=== PATIENT | male | born 1945 | race Caucasian/White ===

== ENCOUNTER 2017-03-05 09:29 | Emergency (ER) | payer MEDICARE, OTHER ==
[~2017-03-05] VITALS: Ht 180.3 cm; Wt 80.3 kg
[2017-03-05 09:32] VITALS: BP 122/83
[2017-03-05] MEDS ORDERED: ACETAMINOPHEN ES 500 MG TABLET ONE (10:32)
[2017-03-05] MEDS ORDERED: ACETAMINOPHEN ES 500 MG TABLET PO ONE (11:00)
[2017-03-05] MEDS ORDERED: SILD50TA PO (17:28)
[2017-03-05] MEDS ORDERED: RANI150T12 PO (17:28)
== END 2017-03-05 10:37 | disposition home or self-care (01) ==
LOC: ER 09:31
DX: S20.222A Contusion of left back wall of thorax, initial encounter (principal); Z88.8 Allergy status to other drugs, medicaments and biological substances; W18.39XA Other fall on same level, initial encounter; Y93.89 Activity, other specified; Y92.89 Other specified places as the place of occurrence of the external cause; Y99.8 Other external cause status
CPT/HCPCS: 71100; 72070; 99284; A4606; Z7610

== ENCOUNTER 2017-03-05 13:51 | Emergency (ER) | payer MEDICARE, OTHER ==
[~2017-03-05] VITALS: Ht 180.3 cm; Wt 80.3 kg
--- NOTE | 2017-03-05 13:55 | NUR ---
AAOX3, CAME TO THE ER C/O WORSENING CHEST PAIN SINCE HE GOT HOME AFTER HE WAS DISCHARGED HOME D/T SLIPPED AND FELL THIS MORNING. SKIN IS WARM AND DRY. PAIN BELOW THE LEFT CHEST DURING INHALATION. PLACED ON MONITOR. EKG AT BS. DR FOLEY AT BS FOR EVAL.
[2017-03-05] MEDS ORDERED: ACETAMINOPHEN ES 500 MG TABLET PO ONE (14:30)
[2017-03-05] MEDS ORDERED: ACETAMINOPHEN ES 500 MG TABLET ONE (14:40)
--- NOTE | 2017-03-05 15:07 | NUR ---
TRIED TO DO CT CHEST SCAN, BUT PT IN TOO MUCH, CAN NOT LIE FLAT. CRISTOBAL PARR IS AWARE.
[2017-03-05] MEDS ORDERED: ONDANSETRON HCL/PF 4 MG/2 ML VIAL ONE (15:21)
[2017-03-05] MEDS ORDERED: MORPHINE SULFATE INJ 2 MG/ML DISP.SYRIN ONE ×2 (15:21→18:10)
[2017-03-05] MEDS ORDERED: ONDANSETRON HCL/PF - ER 4 MG/2 ML VIAL IV ONE (15:30)
[2017-03-05] MEDS ORDERED: MORPHINE SULFATE INJ 2 MG/ML DISP.SYRIN IV ONE ×2 (15:30→18:00)
[2017-03-05 15:34] LABS: BASOPHILS # (AUTO) 0.1 /CMM (0.0-0.2); BASOPHILS % (AUTO) 0.4 % (0.0-2.0); HEMATOCRIT 46 % (39-51); HEMOGLOBIN 15.4 g/dL (13.5-17.5); LYMPHOCYTES # (AUTO) 0.9 /CMM (0.8-4.8); LYMPHOCYTES % (AUTO) 5.9 % (20.0-44.0); MEAN CORPUSCULAR HEMOGLOBIN 33 PG (26.0-33.0); MEAN CORPUSCULAR HGB CONC 33 g/dl (31.0-36.0); MEAN CORPUSCULAR VOLUME 99 fL (80-96); MONOCYTES # (AUTO) 0.9 /CMM (0.1-1.30); MONOCYTES % (AUTO) 5.9 % (2.0-12.0); NEUTROPHILS # (AUTO) 13.8 /CMM (1.8-8.9); NEUTROPHILS % (AUTO) 87.8 % (43.0-81.0); PLATELET COUNT (AUTO) 216 /CMM (150-450); RDW COEFFICIENT OF VARIATION 13.9 (11.5-15.0); RED BLOOD CELL COUNT(AUTO) 4.69 MIL/uL (4.5-6.0); WHITE BLOOD COUNT (AUTO) 15.7 K/uL (4.3-11.0)
[2017-03-05 15:50] LABS: CALCIUM, SERUM 9.7 mg/dL (8.5-10.1); CREATININE 1.1 mg/dL (0.6-1.3); POTASSIUM 3.7 mmol/L (3.5-5.1)
[2017-03-05 15:58] LABS: INR 1.01 (0.87-1.13); PROTHROMBIN TIME 10.8 SECS (9.5-12.7)
[2017-03-05 15:59] LABS: ALBUMIN 4.7 g/dL (3.4-5.0); BILIRUBIN,DIRECT 0.2 mg/dL (0.0-0.2); BILIRUBIN,TOTAL 1.4 mg/dL (0.2-1.0); TOTAL PROTEIN, SERUM 7.9 g/dL (6.4-8.2)
[2017-03-05] MEDS ORDERED: SILD50TA PO (17:28)
[2017-03-05] MEDS ORDERED: RANI150T12 PO (17:28)
--- NOTE | 2017-03-05 17:34 | NUR ---
CALLED TRANSPORT ETA 90 FOR ALS PER JAMEE
--- NOTE | 2017-03-05 17:40 | NUR ---
[facility] THROUGH [place]. ETA 2 HOURS
--- NOTE | 2017-03-05 17:44 | NUR ---
CALL FROM LAURIE MERRILL 90 MINUTES
--- NOTE | 2017-03-05 17:46 | NUR ---
CALLED [facility] FOR ALS TRANSPORT TO [facility]. ETA 45 MINUTES-1 HOUR
[2017-03-05 18:17] VITALS: BP 128/82
--- NOTE | 2017-03-05 18:30 | NUR ---
REPORT GIVEN TO CRISTOBAL BARRIENTOS [facility].
== END 2017-03-05 18:42 | disposition short-term general hospital (02) ==
LOC: ER 13:54
DX: S22.5XXA Flail chest, initial encounter for closed fracture (principal); S22.009A Unspecified fracture of unspecified thoracic vertebra, initial encounter for closed fracture; S27.321A Contusion of lung, unilateral, initial encounter; S27.0XXA Traumatic pneumothorax, initial encounter; D72.829 Elevated white blood cell count, unspecified; K58.9 Irritable bowel syndrome, unspecified; Z88.8 Allergy status to other drugs, medicaments and biological substances; W18.2XXA Fall in (into) shower or empty bathtub, initial encounter; Y93.89 Activity, other specified; Y92.89 Other specified places as the place of occurrence of the external cause; Y99.9 Unspecified external cause status
CPT/HCPCS: 36415; 71010; 71250; 80048; 80076; 84484; 85025; 85730; 86850; 93005; 96374; 96375; 96376; 99291; A4606; J2270 ×2; J2405 ×2; Z7610